=== PATIENT | female | born 1985 | race Caucasian/White ===

== ENCOUNTER 2018-04-04 18:10 | Inpatient (IN) | payer BC ==
[2018-04-04] MEDS ORDERED: Lactated Ringers 1000 ML Bag* 1,000 ML IV ONE ×2 (20:57→22:44)
[2018-04-04] MEDS ORDERED: Buffered Lidocaine 1% SYRIN* 1 ML/SYRINGE INTRADERM ONE (20:57)
[2018-04-04] MEDS ORDERED: Lactated Ringers 1000 ML Bag* 1,000 ML IV SCH ×2 (21:00→23:00)
--- NOTE | 2018-04-04 21:54 | HP ---
General Information - General Information Maternal Age: 32 Grav: 1 Para: 0 SAB: 0 IEA: 0 Estimated Due Date: 04/09/18 Maternal Blood Type and Rh: O Positive - Results this Serology/RPR Result: Non-Reactive Rubella Result: Immune HBsAg Result: Negative HIV Result: Negative GBS Culture Result: Negative Past Medical History Delivery History: See Records - Primigravida Pertinent Past Medical History: Non-Contributory Pertinent Past Surgical History: See Records - toe repair d/t fracture Pertinent Family History: Non-Contributory - Antepartal Records Antepartal Records: Reviewed, Uncomplicated Review of Systems Constitutional: Uncomfortable CV Complaint: No Respiratory: Shortness of Breath: No Gastrointestinal: No Nausea/Vomiting, Normal Bowel Movement Genitourinary: No Dysuria, No Bleeding, No Leaking Fluid Musculoskeletal: No Epigastric Pain, Contractions Neurological: No Headache, No Visual Changes Movement: Normal Exam Allergies/Adverse Reactions: Allergies No Known Allergies Allergy (Verified 03/29/18 12:21) T-98.6, P-65, R-18, BP-115/65, O2-100% - Measurements Height: 5 ft 3 in Weight: 58.06 kg Weight in lbs: 128.635022 Body Mass Index (BMI): 22.6 Pre- Weight: 47.627 kg Weight Gained This : 23 lbs and 0 ozs - Exam Breast: Breast Exam Deferred CVA: No CVA Tenderness Extremities: No Edema Heart: Normal Rhythm/Heart Sounds HEENT: No Significant Findings Lungs: Clear Bilaterally Rectal: Rectal Exam Deferred Reflexes: DTR 2+ Thyroid: No Thyromegaly - Abdominal Exam Abdomen Exam: Non-Tender, Fundal Height Consistent with Dates - Ultrasound/Biophysical Profile Ultrasound Status: Not Done Targeted Exam Findings See L&D Outpatient Visit Provider Note for Findings: N/A Estimated Weight: 6.5# Cervical Exam: 4cm Effacement: 100% Station: 0 Presenting Part: Vertex Membrane Status: Intact Bleeding/Discharge: None EFM Findings - External Monitor Findings Baseline Heart Rate: 140 External Monitor Findings: Accelerations Present, No Pattern of Variable or Late Decelerations, Variability Moderate, Baseline Stable Contractions: Regular, Moderate, 45-90 Seconds Contraction Frequency: 3-4 minutes Assessment/Plan - Assessment 32 year old at 39 2/7 weeks gestation in active labor with no evidence of acidemia and intact membranes - Plan Plan: Admit - Anticipate Vaginal Delivery Plan Comment: At time of initial assessment pt was unsure whether she wanted an epidural. At this time, however, pt has decided she would like to get an epidural. IV access established and Dr. Castellano notified. - Date/Time of Admission Date of Admission: 04/04/18 Time of Admission: 21:01
[2018-04-04] MEDS ORDERED: OBEPIDURAL* 250 ML EPIDURAL ONE (22:02)
[2018-04-04] MEDS ORDERED: Sodium Citrate/Citric Acid* 15 ML UDC PO PRN (22:44)
[2018-04-04] MEDS ORDERED: Phenylephrine IV* 40 MCG/ML 10 ML SYRINGE IV PUSH PRN ×2 (22:44)
[2018-04-04] MEDS ORDERED: Famotidine TAB* 20 MG PO PRN (22:44)
[2018-04-04] MEDS ORDERED: EPHEDrine (Pressors)* 50 MG/ML VIAL IV PUSH PRN ×2 (22:44)
[2018-04-04 22:46] LABS: ABS Basophils 0.1 10^3/ul (0-0.2); ABS Eosinophils 0 10^3/ul (0-0.6); ABS Lymphocytes 1.1 10^3/ul (1.0-4.8); ABS Monocytes 0.6 10^3/ul (0-0.8); ABS Neutrophils 11.7 10^3/ul (1.5-7.7); ABS Nucleated RBC 0 10^3/ul; Eosinophil % 0 %; Hematocrit 35 % (35-47); Hemoglobin 11.9 g/dl (12.0-16.0); Lymphocyte % 8.3 %; Mean Corpuscular HGB Conc 34 g/dl (31-36); Mean Corpuscular Hemoglobin 31 pg (27-31); Mean Corpuscular Volume 92 fL (80-97); Mean Platelet Volume 7.3 fL (7.4-10.4); Nucleated Red Blood Cells % 0; Platelet Count 233 10^3/ul (150-450); Red Blood Count 3.79 10^6/ul (4.00-5.40); Red Cell Distribution Width 12 % (10.5-15); White Blood Count 13.5 10^3/ul (3.5-10.8)
[2018-04-04] MEDS ORDERED: OBEPIDURAL* 250 ML EPIDURAL SCH (23:00)
--- NOTE | 2018-04-04 23:41 | PN ---
Progress Note - Progress Note Date of Service: 04/04/18 SOAP: Subjective: Pt very comfortable with epidural. Feeling some ambivalence about getting it, but overall happy with decision. Objective: FHR: Baseline 140, moderate variability, + accels, several early and variable decels observed, responded to position changes. UCs every 3-4 minutes Cervix: 7-8 cm/ 100%/ 0 station Possibly leaking clear fluid Assessment: Pt making rapid progress in labor, FHR with some decelerations but moderate variability, decels likely secondary to rapid dilation. Plan: Encourage pt to rest as able. Will recheck with urge to push or PRN. Anticipate
--- NOTE | 2018-04-05 01:36 | PN ---
Progress Note - Progress Note Date of Service: 04/05/18 SOAP: Subjective: Pt feeling more pressure. Discomfort greater on left side, pt lying on left side. Objective: Cervical exam: anterior lip, +1 station, bulging bag of minor FHR: 145 baseline, moderate variability, + accels, intermittent variable decels UCs: 2-4 minutes Assessment: Pt making good progress, no evidence of acidemia. Plan: Anticipate .
[2018-04-05] MEDS ORDERED: Acetaminophen TAB* 325 MG PO PRN (05:19)
[2018-04-05] MEDS ORDERED: Witch Hazel PAD* JAR TOPICAL PRN (05:19)
[2018-04-05] MEDS ORDERED: Ibuprofen TAB* 600 MG PO PRN (05:19)
[2018-04-05] MEDS ORDERED: Glycerin ADULT SUPP PR PRN (05:19)
[2018-04-05] MEDS ORDERED: Dibucaine 1% 28.35 GM TUBE PR PRN (05:19)
[2018-04-05] MEDS ORDERED: Oxytocin in LR* 20 UNITS/1,000 ML BAG IVPB ONE (05:47)
[2018-04-05] MEDS ORDERED: Lactated Ringers 1000 ML Bag* 1,000 ML IV SCH (06:00)
[2018-04-05] MEDS ORDERED: Oxytocin 20 UNITS in LR* ** ENTER RATE IVPB ONE (06:15)
[2018-04-05] MEDS ORDERED: Simethicone TAB* 80 MG TAB.CHEW PO SCH (08:30)
--- NOTE | 2018-04-05 13:54 | PROCNOTE ---
[facility] OB: Delivery Note - Delivery A Date of : 04/05/18 Time of : 04:35 [place] Sex: Female Weight at : 3.386 kg Score 1 Minute: 9 Score 5 Minutes: 9 Gestational Age in Weeks and Days at Delivery: 39 Weeks and 3 Days Delivery Method: Spontaneous Vaginal Labor: Spontaneous Did Patient attempt ?: N/A, No Previous Amniotic Fluid: Meconium Estimated Blood Loss: 200 Anesthesia/Analgesia: CEI for Labor Delivered By: Kitty Bonds Nursery Level of Nursery: Regular/Bedside - Perineum Perineal Injury: Abrasion Only - Not Repaired Perineal Injury Comment: vaginal sulcus, right labial, and periurethral abrasions Perineal Repair: None - Events Delivery Events of Note: Pitocin Only After Delivery - Additional Delivery Notes Additional Delivery Notes: Pt admitted to labor and delivery in active labor with intact membranes. She made steady progress and eventually requested and received an epidural, which provided good pain relief. Pt continued to make good progress. SROM occurred, with meconium stained fluid noted. Pt eventually found to be completely dilated. Pt initially very numb from the epidural, so she labored down until she felt increased pressure. At that time, pt began to push with good effort and steady descent. Pt with strong pelvic floor and tight perineum and infant remained at stage through multiple pushes. FHR would decrease during and immediately following pushes, but consistently returned to >100 bpm. Episiotomy considered, but pt delivered infant's head with next push. Anterior shoulder delivered easily, posterior shoulder tight but followed without any special maneuvers. Infant placed on maternal abdomen with spontaneous cry, good tone, HR>100. After cord pulsation ceased, cord clamped x2 and cut by 's father. Placenta delivered spontaneously soon after, giovani side. Inspection of perineum revealed small right sulcus, periurethral and righ tlabial abrasions , hemostatic, not repaired. Perineum otherwise intact. Fundus firm with minimal bleeding. Infant and mother stable at this time, anticipate normal course.
[2018-04-05] MEDS: Docusate CAP* 100 MG PO SCH ×2 (17:56→19:56)
[2018-04-06 06:33] LABS: ABS Basophils 0 10^3/ul (0-0.2); ABS Eosinophils 0 10^3/ul (0-0.6); ABS Lymphocytes 1.6 10^3/ul (1.0-4.8); ABS Monocytes 0.5 10^3/ul (0-0.8); ABS Neutrophils 8.3 10^3/ul (1.5-7.7); ABS Nucleated RBC 0 10^3/ul; Eosinophil % 0.3 %; Hematocrit 30 % (35-47); Hemoglobin 10.1 g/dl (12.0-16.0); Lymphocyte % 15.6 %; Mean Corpuscular HGB Conc 34 g/dl (31-36); Mean Corpuscular Hemoglobin 31 pg (27-31); Mean Corpuscular Volume 92 fL (80-97); Mean Platelet Volume 6.9 fL (7.4-10.4); Nucleated Red Blood Cells % 0.1; Platelet Count 170 10^3/ul (150-450); Red Blood Count 3.25 10^6/ul (4.00-5.40); Red Cell Distribution Width 13 % (10.5-15); White Blood Count 10.5 10^3/ul (3.5-10.8)
[2018-04-06] MEDS: Docusate CAP* 100 MG PO SCH ×3 (08:57→20:42)
[2018-04-06] MEDS ORDERED: Ferrous Gluconate TAB* 324 MG TAB PO SCH (09:00)
[2018-04-06 13:27] LABS: Urine Appearance Clear; Urine Bacteria Absent (Absent); Urine Bilirubin Negative (Negative); Urine Blood 2+ (Negative); Urine Color Yellow; Urine Glucose Negative (Negative); Urine Ketones Trace (Negative); Urine Nitrite Negative (Negative); Urine Protein Negative (Negative); Urine Red Blood Cell 3+(>10/hpf) (Absent); Urine Specific Gravity 1.008 (1.010-1.030); Urine Urobilinogen Negative (Negative); Urine White Blood Cell 3+(>20/hpf) (Absent)
[2018-04-07] MEDS: Docusate CAP* 100 MG PO SCH (07:59)
[2018-04-07 08:13] VITALS: BP 111/76
== END 2018-04-07 12:36 | disposition home or self-care (01) | DRG 560 ==
LOC: MCHOBOUT 18:10 → MCHOB 21:01
PROVIDERS: ADMIT Midwife; ATTEND Midwife
PROC: 10E0XZZ Delivery of Products of Conception, External Approach (ICD-10-PCS; principal; 2018-04-05)
DX: O77.0 Labor and delivery complicated by meconium in amniotic fluid (principal); Z37.0 Single live birth; O70.0 First degree perineal laceration during delivery; Z3A.39 39 weeks gestation of pregnancy
CPT/HCPCS: 36415; 81003; 81015; 85025; 86850; 86900; 86901; 87086; A9270-GY

== ENCOUNTER 2020-09-10 04:19 | Inpatient (IN) ==
[2020-09-10] MEDS ORDERED: Lactated Ringers 1000 ml BAG 1,000 ML IV ONE (05:10)
[2020-09-10] MEDS ORDERED: Buffered Lidocaine 1% SYRIN 1 ml INTRADERM ONE (05:10)
[2020-09-10] MEDS ORDERED: Dibucaine 1% OINT 28.35 GM TUBE PR PRN (05:16)
[2020-09-10] MEDS ORDERED: Glycerin ADULT 2.4 gm SUPP PR PRN (05:16)
[2020-09-10] MEDS ORDERED: Witch Hazel PAD JAR TOPICAL PRN (05:16)
[2020-09-10] MEDS ORDERED: Lactated Ringers 1000 ml BAG 1,000 ML IV SCH (06:00)
[2020-09-10 09:13] LABS: Urine Benzodiazepine Screen None Detected (None Detect); Urine Cannabinoids Screen None Detected (None Detect); Urine Opiates Screen None Detected (None Detect)
[2020-09-11 00:39] VITALS: BP 100/60
[2020-09-11 06:30] LABS: ABS Eosinophils 0.1 10^3/ul (0-0.6); ABS Lymphocytes 1.5 10^3/ul (1.0-4.8); ABS Monocytes 0.5 10^3/ul (0-0.8); ABS Neutrophils 5.4 10^3/ul (1.5-7.7); Eosinophil % 1.3 %; Hematocrit 33 % (35-47); Hemoglobin 11.4 g/dL (12.0-16.0); Lymphocyte % 20.2 %; Mean Corpuscular HGB Conc 34 g/dL (31-36); Mean Corpuscular Hemoglobin 33 pg (27-31); Mean Corpuscular Volume 95 fL (80-97); Mean Platelet Volume 6.8 fL (7.4-10.4); Platelet Count 202 10^3/uL (150-450); Red Cell Distribution Width 13 % (10-15); White Blood Count 7.6 10^3/uL (3.5-10.8)
== END 2020-09-11 11:27 | disposition home or self-care (01) | DRG 560 ==
LOC: MCHOBOUT 04:19 → MCHOB 04:23
PROVIDERS: ADMIT Midwife; ATTEND Midwife